=== PATIENT | male | born 1995 | race Caucasian/White ===

== ENCOUNTER 2016-11-21 15:18 | Emergency (ER) | payer OTHER ==
[~2016-11-21] VITALS: Ht 180.3 cm; Wt 69.9 kg
[2016-11-21 15:26] VITALS: BP 119/80; PULSE 80; RESP 18; TEMP 97.1; O2SAT 99
--- NOTE | 2016-11-21 16:45 | NUR ---
Linn izaguirre in [facility] - 11/21/16 at 1710 by [email or web address] PREETI Palmer in [facility] examining patient.
--- NOTE | 2016-11-21 16:52 | NUR ---
Patient to ER tanner [facility] to [facility] for evaluation. Side rails up. Report given to Elizabeth PADRON.
--- NOTE | 2016-11-21 17:00 | NUR ---
ER in [facility] examining patient.
--- NOTE | 2016-11-21 17:01 | NUR ---
Pt brought in by BLS transport in stable condition. Pt c/o anxiety w/ tingling to his hands after getting into an argument with his girlfriend. -sob -chest pain -diaphoresis. Pt is able to ambulate to hallway [facility] w/ a steady gait. No acute distress noted at this time, will continue to monitor
[2016-11-21 17:19] VITALS: BP 119/80; PULSE 80; RESP 18; TEMP 97.1; O2SAT 99
--- NOTE | 2016-11-21 17:19 | NUR ---
Patient given written and verbal discharge instructions and verbalizes understanding. ER MD Gutierrez discussed with patient the results and treatment provided. Patient in stable condition. ID arm band removed. Patient educated on pain management and to follow up with PMD. Pain Scale 0/10. Opportunity for questions provided and answered.
== END 2016-11-21 17:19 | disposition home or self-care (01) ==
LOC: SED 15:18
DX: F41.9 Anxiety disorder, unspecified (principal)
CPT/HCPCS: 99283